=== PATIENT | female | born 1955 ===

== ENCOUNTER 2025-03-15 05:18 | Day surgery (SDC) | payer OTHER ==
[2025-03-09 12:06] VITALS: BP 140/80
[~2025-03-15] VITALS: Ht 160 cm; Wt 88.5 kg
[~2025-03-15 05:18] MED LIST: ATORVASTATIN CA10 MG PO; COZAAR100 MG PO; TOPROL XL25 M1 PO
[2025-03-15] MEDS ORDERED: IBU600 MG PO (08:35)
== END 2025-03-15 11:30 | disposition home or self-care (01) ==
LOC: CIR.AMB 05:18
PROVIDERS: ATTEND Obstetrics & Gynecology Gynecology
DX: N85.00 Endometrial hyperplasia, unspecified (principal)